=== PATIENT | male | born 1970 | race Caucasian/White ===

== ENCOUNTER → 2018-11-11 18:09 | Outpatient (CLI) | payer OTHER, SELFPAY ==
--- NOTE | 2018-11-11 | LES_PTH ---
PATIENT: BEN PATE LOC: [facility] U#:[id number] AGE/SX: 54/M ROOM: RE11/11/[address]: Dr. Trae Tinsley MD : 1970 BED: DIS: SPEC #: [id number] RECD: 11/11/18 11:07 STATUS: MARIAMA RCISTOPHER #: [id number] MIKI: 11/11/18 00:[address]: Trae Tinsley DEPT: SURGICAL PATHOLOGY RECD BY: Rob Molina Tissues: A - Skin of scalp, NOS B - Skin of scalp, NOS Procedures: Surgery Specimen Level IV HEADER OPERATION: Excision scalp lesion x2 PRE-OP DIAGNOSIS: Lesion of subcutaneous tissue L98.9 TISSUE SUBMITTED: A - [place] of scalp lesion, B - Front scalp lesion MICROSCOPIC DIAGNOSIS A. [place] of scalp lesion, excision: Trichilemmal cyst (pilar cyst). B. Frontal of scalp lesion, excision: Trichilemmal cyst (pilar cyst). AM:irina 11/14/18 MICROSCOPIC DESCRIPTION Slides are reviewed. GROSS DESCRIPTION A - Received in fixative is one container labeled with the patient's name and designated crown of scalp. The specimen consists of a nodular piece of ochoa, indurated tissue measuring 1.5 x 1.2 x 1 cm. The specimen is inked, serially sectioned and submitted entirely in one cassette. B - Received in fixative is one container labeled with the patient's name and designated frontal scalp. The specimen consists of a nodular piece of ochoa, indurated tissue measuring 2 x 1.5 x 0.7 cm. The specimen is inked, bisected and submitted entirely in two cassettes. / SJ:irina 11/13/18 TC:5 CPT: 25571 x2
== END ==
PROVIDERS: Referring Provider Surgery; Visit Provider Surgery
DX: L98.9 Disorder of the skin and subcutaneous tissue, unspecified (principal)
CPT/HCPCS: 88305